=== PATIENT | female | born 1955 | race Caucasian/White ===

== ENCOUNTER 2025-03-26 10:09 | Outpatient (CLI) | payer MEDICARE ==
[2025-03-26 11:30] LABS: #Basophils 0.04 10x3/uL (0.0-0.2); #Eosinophils 0.09 10x3/uL (0.0-0.5); #Monocytes 0.33 10x3/uL (0.0-1.1); #Neutrophils 3.10 10x3/uL (1.5-8.4); %Basophils 0.9 % (0.0-2.0); %Eosinophils 2.0 % (0.0-6.0); %Lymphocytes 20.1 % (18.0-47.0); %Monocytes 7.4 % (0.0-10.0); %Neutrophils 69.2 % (40.0-75.0); Hematocrit 39.6 % (34.9-44.5); Hemoglobin 13.3 g/dL (12.0-15.5); Mean Corpuscular Hemoglobin 30.8 pg (27.0-33.0); Mean Corpuscular Volume 91.7 fL (81.6-98.3); Platelet Count 225 10x3/uL (150-450); Red Blood Cell (RBC) Count 4.32 10x6/uL (3.90-5.03); White Blood Cell (WBC) Count 4.48 10x3/uL (3.5-10.5)
[2025-03-26 11:42] LABS: Anion Gap 12 mmol/L (10-20); BUN (Urea Nitrogen) 21 mg/dL (9.8-20.1); Calc. Creatinine Clearance 0 mL/min (70-130); Calcium 9.5 mg/dL (7.8-10.44); Carbon Dioxide 27 mmol/L (23-31); Chloride 105 mmol/L (98-107); Glucose 94 mg/dL (80-115); Potassium 4.4 mmol/L (3.5-5.1); Sodium 140 mmol/L (136-145)
== END 2025-03-26 10:10 | disposition home or self-care (01) ==
LOC: CSHLAB 10:09
PROVIDERS: ATTEND Surgery
DX: Z01.818 Encounter for other preprocedural examination (principal); K36 Other appendicitis
CPT/HCPCS: 80048; 85025; 93005; 93010